=== PATIENT | male | born 1970 | race Caucasian/White ===

== ENCOUNTER → 2017-08-01 | Outpatient (CLI) | payer OTHER | LOC: COL.RAD 07:24 | DX: R10.13 Epigastric pain (principal); R10.11 Right upper quadrant pain ==

== ENCOUNTER 2019-05-02 13:52 | Emergency (ER) | payer OTHER ==
[~2019-05-02] VITALS: Ht 170.2 cm; Wt 72.7 kg
[2019-05-02 14:05] VITALS: BP 136/83; PULSE 98; TEMP 98.7
[2019-05-02] MEDS ORDERED: ZESTORETIC 12.51 TAB PO (14:22)
[2019-05-02] MEDS ORDERED: NORVASC 5MG5 MG/TAB PO (14:22)
== END 2019-05-02 15:36 | disposition home or self-care (01) ==
LOC: COL.ER 13:52
DX: S92.412A Displaced fracture of proximal phalanx of left great toe, initial encounter for closed fracture (principal); S01.81XA Laceration without foreign body of other part of head, initial encounter; S70.01XA Contusion of right hip, initial encounter; S40.012A Contusion of left shoulder, initial encounter; I10 Essential (primary) hypertension; K21.9 Gastro-esophageal reflux disease without esophagitis; F17.290 Nicotine dependence, other tobacco product, uncomplicated; Z23 Encounter for immunization; V19.9XXA Pedal cyclist (driver) (passenger) injured in unspecified traffic accident, initial encounter; Y92.89 Other specified places as the place of occurrence of the external cause

== ENCOUNTER 2019-05-12 12:30 | Emergency (ER) | payer OTHER ==
[~2019-05-12 12:30] MED LIST: NORVASC 5MG5 MG/TAB PO; ZESTORETIC 12.51 TAB PO
[2019-05-12 12:46] VITALS: BP 133/85; PULSE 84; TEMP 97.8
== END 2019-05-12 12:50 | disposition home or self-care (01) ==
LOC: COL.ER 12:30
DX: S01.81XD Laceration without foreign body of other part of head, subsequent encounter (principal); X58.XXXD Exposure to other specified factors, subsequent encounter

== ENCOUNTER → 2020-07-10 | Outpatient (CLI) | payer OTHER | LOC: ZCOL.LAB 16:56 | DX: Z20.828 Contact with and (suspected) exposure to other viral communicable diseases (principal) ==